=== PATIENT | female | born 1960 | race Two or more races ===

== ENCOUNTER 2017-03-12 01:56 | Emergency (ER) | payer OTHER ==
[2017-03-12 03:17] LABS: CALCIUM 8.6 mg/dL (8.5-10.1); CARBON DIOXIDE 28.1 mmol/L (21-32); CHLORIDE SERUM 106 mmol/L (98-107); CREATININE SERUM 0.7 mg/dL (0.6-1.0); GFR1 > 60 mL/min; GLUCOSE SERUM 127 mg/dL (74-106); POTASSIUM SERUM 3.7 mmol/L (3.5-5.1); SODIUM SERUM 141 mmol/L (136-145)
[2017-03-12 03:18] LABS: C REACTIVE PROTEIN 0.9 mg/dL (<=0.9); MAGNESIUM 2.3 mg/dL (1.8-2.4)
[2017-03-12 03:20] VITALS: BP 165/77
== END 2017-03-12 03:20 | disposition home or self-care (01) ==
LOC: ED 01:56
PROVIDERS: Emergency Medicine
DX: M79.1 Myalgia (principal); R25.2 Cramp and spasm
CPT/HCPCS: 36415; J1885

== ENCOUNTER 2017-06-30 01:10 | Emergency (ER) | payer OTHER ==
[~2017-06-30] VITALS: Ht 162.6 cm; Wt 96.2 kg
[2017-06-30 04:41] VITALS: BP 149/87
== END 2017-06-30 04:41 | disposition home or self-care (01) ==
LOC: ED 01:10
DX: M76.61 Achilles tendinitis, right leg (principal)
CPT/HCPCS: Q0092

== ENCOUNTER 2017-10-28 15:33 | Emergency (ER) | payer OTHER ==
[~2017-10-28] VITALS: Ht 160 cm; Wt 95.2 kg
[2017-10-28 17:47] VITALS: BP 150/75
== END 2017-10-28 17:48 | disposition home or self-care (01) ==
LOC: ED 15:33
DX: J11.1 Influenza due to unidentified influenza virus with other respiratory manifestations (principal); Z91.048 Other nonmedicinal substance allergy status; E11.9 Type 2 diabetes mellitus without complications
CPT/HCPCS: J7512; J7613; Q0092

== ENCOUNTER 2019-03-01 12:03 | Emergency (ER) | payer MEDICAID ==
[~2019-03-01] VITALS: Ht 162.6 cm; Wt 95.3 kg
[2019-03-01 12:06] VITALS: Ht 162.6 cm; Wt 95.3 kg
[2019-03-01 14:20] VITALS: BP 173/84
== END 2019-03-01 14:20 | disposition home or self-care (01) ==
LOC: ED 12:03
DX: M17.11 Unilateral primary osteoarthritis, right knee (principal); J45.909 Unspecified asthma, uncomplicated; Z88.8 Allergy status to other drugs, medicaments and biological substances